=== PATIENT | female | born 1980 | race Caucasian/White ===

== ENCOUNTER 2021-10-17 05:59 | Inpatient (IN) | payer MEDICARE, OTHER ==
[~2021-10-17 05:59] MED LIST: BACTROBAN OINT22 GM EXT; COLACE 100MG C100 MG PO; IBUPROFEN600 MG PO; NORCO 5-325 TA1 EACH PO
[2021-10-17 07:52] LABS: HEMOGLOBIN 10.9 gm/dl (12.3-15.3); RED BLOOD COUNT 3.31 M/UL (4.00-5.10); WHITE BLOOD COUNT 10.2 K/UL (4.5-11.0)
== END 2021-10-17 09:08 | disposition short-term general hospital (02) | DRG 832 ==
LOC: OB 06:02
PROVIDERS: ADMIT Obstetrics & Gynecology
PROC: 4A1HXCZ Monitoring of Products of Conception, Cardiac Rate, External Approach (ICD-10-PCS; principal; 2021-10-17)
DX: O99.891 Other specified diseases and conditions complicating pregnancy (principal); O98.412 Viral hepatitis complicating pregnancy, second trimester; Z20.822 Contact with and (suspected) exposure to COVID-19; B19.20 Unspecified viral hepatitis C without hepatic coma; Z3A.25 25 weeks gestation of pregnancy; Z80.8 Family history of malignant neoplasm of other organs or systems; Z80.3 Family history of malignant neoplasm of breast; M54.9 Dorsalgia, unspecified
CPT/HCPCS: 80307; 81001; 84112; 85025; J0702; J1200; J2765; J3475; U0002